=== PATIENT | male | born 1930 | race Caucasian/White ===

== ENCOUNTER 2017-04-22 14:24 | Emergency (ER) | payer OTHER, MEDICARE ==
[~2017-04-22] VITALS: Ht 180.3 cm; Wt 54.4 kg
[~2017-04-22 14:24] MED LIST: ASPIR 8181 MG PO; AUGMENTIN 875-1 EACH PO; AUGMENTIN 875875 MG PO; BYSTOLIC5 M1 PO; OMEPRAZOLE D/R20 MG PO; TRICOR 145 MG145 MG PO; VICODIN5-300 PO; VITAMIN D1000 IU PO
[2017-04-22 14:28] VITALS: BP 128/60
--- NOTE | 2017-04-22 14:50 | ED EAR COMPLAINT ---
History of Present Illness General Chief Complaint: Ear Complaints Stated Complaint: "PER PT BOTH EARS RINGING,AND CLOGGED" Source: patient, family Exam Limitations: no limitations Vital Signs & Intake/Output Vital Signs & Intake/Output Vital Signs Date Time Temp Pulse Resp B/P B/P Pulse O2 O2 Flow FiO2 Mean Ox Delivery Rate 04/22 1428 97.2 97 16 128/60 99 Room Air Allergies Coded Allergies: MDX - Codeine (CODEINE) (Severe, DIZZY/NAUSEA/VOMITING 04/23/14) Reconcile Medications Amoxicillin/Potassium Clav (Augmentin 875-125 Tablet) 1 EACH TABLET 1 TAB PO BID cellulitis Aspirin (Ecotrin) 81 MG TABLET.DR 1 TAB PO DAILY HEART (Reported) Cholecalciferol (Vitamin D3) 1,000 UNIT TABLET 1,000 IU PO DAILY Vitamins Fenofibrate (Tricor 145 MG) 145 MG TABLET 1 TAB PO DAILY CHOLESTEROL ( Reported) HYDROCODONE/ACETAMINOPHEN (Hydrocodon-Acetaminophen 5-325) 5 MG-325 MG TABLET 1 TAB PO TIDPRN PRN PAIN (Reported) Nebivolol (Bystolic) 5 MG TABLET 1 TAB PO DAILY HTN (Reported) Omeprazole 20 MG CAPSULE.DR 1 TAB PO DAILY AC GERD (Reported) Triage Note: 86 Y/O MALE C/O BILATERAL EARS FEELING "CLOGGED" X 1 MONTH. STATES HE FEELS OFF BALANCE DUE TO SYMPTOMS. FEELS THOUGH EARS ARE CLOGGED WITH WAX. DENIES PAIN. Triage Nurses Notes Reviewed? yes Onset: Gradual Injury Environment: home Severity: moderate Severity Numbers: 6 No Modifying Factors: none HPI: Patient is an 86-year-old male presenting to the emergency department with chief complaint of feeling like his ears are clogged. Symptoms have been going on for the past several weeks worse over the past couple days. Denies any associated pain. He does report intermittent dizziness with the ear clogged. No current dizziness. Denies any visual changes. No palpitations chest pain or shortness of breath. He has history of similar symptoms in the past and he needed his ears irrigated. Denies any change in hearing. (REED MOREIRA) Past History Travel History Traveled to [place] past 21 day No Medical History Any Pertinent Medical History? see below for history Neurological: DENIES EENT: DENIES Cardiovascular: hypertension, IRREGULAT HEART BEAT Respiratory: DENIES Gastrointestinal: DENIES Hepatic: DENIES Renal: DENIES Musculoskeletal: chronic back pain Psychiatric: DENIES Endocrine: DENIES Blood Disorders: DENIES Cancer(s): DENIES NEUROPSYCHIATRIST/Reproductive: DENIES Influenza Vaccine: 08/28/14 Tetanus Vaccine: 06/18/12 Surgical History Surgical History: none Psychosocial History Who do you live with Significant Other What is your primary language Indonesian Tobacco Use: Never used Family History Family History, If Any: SISTER (Cancer). MOTHER MOTHER (Heart Problem). FATHER (Heart Problem). Hx Contributory? No (REED MOREIRA) Review of Systems Review of Systems Constitutional: Reports: no symptoms. Comments Review of systems: See HPI, All other systems negative. Constitutional, no chills fever or weight loss HEENT: No visual changes no sore throat Cardiovascular: No chest pain ,palpitation , orthopnea or ankle swelling Skin, no jaundice no rashes Respiratory: No dyspnea cough sputum or hemoptysis GI: No nausea no vomiting : No dysuria No hematuria Muscle skeletal: no back pain, no neck pain, Neurologic: No numbness no confusion Psych: No stress anxiety or depression,. Heme/endocrine: No bruising no bleeding no polyuria or polydipsia Immunology: No splenectomy or history of AIDS (REED MOREIRA) Physical Exam Physical Exam General Appearance: well developed/nourished, no apparent distress, alert, awake , comfortable Ears: Bilateral: other (CERUMEN IMPACTION). Comments: Well-developed well-nourished person in no acute distress HEENT: extraocular motion intact, no nystagmus. Pupils equally round and reactive to light and accommodation. Nose is atraumatic. Cerumen impaction bilaterally. Pharynx normal. No swelling or edema. Neck: Supple, no lymphadenopathy, normal range of motion without pain or tenderness Back: Nontender Cardiovascular: Regular rate and rhythms , AUDIBLE HOLOSYSTOLIC MURMUR Respiratory: Chest nontender. No respiratory distress.breath sounds clear to auscultation bilaterally Extremity: No edema Neuro: Alert oriented x3, motor sensory normal, cranial nerves II through XII grossly intact. Skin: No appreciable rash on exposed skin, skin is warm and dry. Psych: Mood and affect is normal, memory and judgment is normal. (REED MOREIRA) Progress Differential Diagnoses I considered the following diagnoses in my evaluation of the patient: Cerumen impaction, vertigo, presbycusis, upper respiratory infection, sinusitis Plan of Care: Ears were irrigated with saline and hydrogen peroxide. Complete removal of cerumen impaction bilaterally. Tympanic membranes were visualized and intact. Patient leaving the room was steady gait. Is alert and oriented no focal deficits. Intermittent dizziness is likely related to the cerumen impaction. Initial ED EKG: none Comments: D/W DR NIKKIE CAREYSS [facility]. (REED MOREIRA) Departure Departure Time of Disposition: 1508 Disposition: HOME OR SELF CARE Condition: Stable Clinical Impression Primary Impression: Cerumen impaction Qualifiers: Laterality: bilateral Qualified Code: H61.23 - Impacted cerumen, bilateral Referrals: ELÍAS PENDLETON,HOWARD Guerrero. Additional Instructions: Follow-up with your primary care physician call to make an appointment. Increase fluids. Use [id number] Debrox just to help keep earwax softened. Return for worsening symptoms or concerns. Departure Forms: Customer Survey General Discharge Information (REED MOREIRA) PA/DIRECTOR OF ENTERPRISE STRATEGY Co-Sign Statement Statement: ED Attending supervision documentation- [] I saw and evaluated the patient. I have also reviewed all the pertinent lab results and diagnostic results. I agree with the findings and the plan of care as documented in the PA's/DIRECTOR OF [employer]TERPRISE [employer]ATEGY's documentation. [X] I have reviewed the ED Record and agree with the PA's/DIRECTOR OF [employer]TERPRISE [employer]ATEGY's documentation. [] Additions or exceptions (if any) to the PAs/DIRECTOR OF ENTERPRISE [employer]ATEGY's note and plan are summarized below: [] (NIKKIE PENDLETON,ISSAC)
== END 2017-04-22 16:09 ==
LOC: ERH 14:24
DX: H61.23 Impacted cerumen, bilateral (principal)

== ENCOUNTER 2017-05-04 14:15 | Emergency (ER) | payer OTHER, MEDICARE ==
[~2017-05-04] VITALS: Ht 177.8 cm; Wt 53.1 kg
--- NOTE | 2017-05-04 14:23 | ED EAR COMPLAINT ---
History of Present Illness General Chief Complaint: Ear Complaints Stated Complaint: "I NEED MY EARS CLEANED OUT" Source: patient Exam Limitations: no limitations Vital Signs & Intake/Output Vital Signs & Intake/Output Vital Signs Date Time Temp Pulse Resp B/P B/P Pulse O2 O2 Flow FiO2 Mean Ox Delivery Rate 05/04 1600 97.6 72 16 143/65 97 Room Air 05/04 1417 97.8 67 20 131/60 98 Room Air Allergies Coded Allergies: codeine (Severe, DIZZY 05/04/17) Reconcile Medications Atenolol 25 MG TABLET 1 TAB PO DAILY HEART (Reported) Furosemide 20 MG TABLET 1 TAB PO DAILY WATER PILL (Reported) Nebivolol HCl (Bystolic) 5 MG TABLET 1 TAB PO DAILY HTN (Reported) Triage Note: PT TO ED FOR EAR WAX REMOVAL. STATES HE WAS HERE 04/22, HAD EAR WAX REMOVED AND WAS TOLD TO COME BACK TO HAVE MORE REMOVED. DENIES PAIN, C/O RINGING IN EARS. Triage Nurses Notes Reviewed? yes Onset: Gradual Duration: constant Timing: recent history Injury Environment: home Severity: mild Severity Numbers: 3 HPI: Patient is an 86-year-old male who presents to emergency with request of earwax removal to both his ears were he's noticed in the past few days clogging sensation and decreased hearing. Patient was evaluated approximately 2 weeks ago for similar events where both his ears were cleaned with peroxide and sterile water were patient had complete resolution. Patient states that he feels the left is more clogged in the right Denies any fever chills pain headache and is otherwise without complaints (BETH PALOMO) Past History Travel History Traveled to [place] past 21 day No Medical History Any Pertinent Medical History? see below for history Neurological: DENIES EENT: DENIES Cardiovascular: hypertension, IRREGULAT HEART BEAT Respiratory: DENIES Gastrointestinal: DENIES Hepatic: DENIES Renal: DENIES Musculoskeletal: chronic back pain Psychiatric: DENIES Endocrine: DENIES Blood Disorders: DENIES Cancer(s): DENIES EMPLOYMENT LEGAL ASSISTANT/Reproductive: DENIES Tetanus Vaccine: 06/18/12 Surgical History Surgical History: none Psychosocial History Who do you live with Significant Other What is your primary language Divehi Tobacco Use: Quit >30 days ago ETOH Use: denies use Illicit Drug Use: denies illicit drug use Family History Family History, If Any: SISTER (Cancer). MOTHER MOTHER (Heart Problem). FATHER (Heart Problem). Hx Contributory? No (BETH PALOMO) Review of Systems Review of Systems Constitutional: Reports: no symptoms. EENTM: Reports: see HPI. Denies: ear pain, ear redness. Respiratory: Reports: no symptoms. Cardiovascular: Reports: no symptoms. GI: Reports: no symptoms. Genitourinary: Reports: no symptoms. Musculoskeletal: Reports: no symptoms. Skin: Reports: no symptoms. Neurological/Psychological: Reports: no symptoms. Hematologic/Endocrine: Reports: no symptoms. Immunologic/Allergic: Reports: no symptoms. All Other Systems: Reviewed and Negative (BETH PALOMO) Physical Exam Physical Exam General Appearance: no apparent distress, alert, comfortable Ears: Right: Tympanic normal. Comments: Well-developed well-nourished person in no acute distress HEENT: extraocular motion intact, no nystagmus. Pupils equally round and reactive to light and accommodation. Nose is atraumatic. Right ear-external auditory canal shows mild amount of cerumen tympanic membrane was visualized nodes be unremarkable. Left ear-noted complete cerumen impaction Pharynx normal. No swelling or edema. Neck: Supple, no lymphadenopathy, normal range of motion without pain or tenderness Back: Nontender, no CVA tenderness. Full range of motion Cardiovascular: Regular rate and rhythms no murmurs rubs or gallops, normal JVP Respiratory: Chest nontender. No respiratory distress.breath sounds clear to auscultation bilaterally Abdomen: Soft, nontender nondistended, no appreciable organomegaly. Normal bowel sounds. No ascites Extremity: No edema, no calf tenderness to palpation, normal and equal pulses. Neuro: Alert oriented x3, motor sensory normal, cranial nerves II through XII grossly intact. Skin: No appreciable rash on exposed skin, skin is warm and dry. Psych: Mood and affect is normal, memory and judgment is normal. (BETH PALOMO) Progress Differential Diagnoses I considered the following diagnoses in my evaluation of the patient: [Cerumen impaction, otitis media, otitis externa, tympanic membrane rupture, sinusitis, mastoiditis] Plan of Care: Patient on examination noted to have left-sided cerumen impaction of ear. Warm water and peroxide currently is soaking the cerumen After multiple attempts for irrigation of the left ear and using curette, THE cerumen impaction still remained in which I strongly advised patient to continue Debrox and follow up with ENT. Initial ED EKG: none (BETH PALOMO) Departure Departure Disposition: HOME OR SELF CARE Condition: Stable Clinical Impression Primary Impression: Excessive cerumen in left ear canal Referrals: NENA PENDLETON,ANIVAL CA MD,CELE BRUMFIELD (PCP/Family) Additional Instructions: As discussed continue [id number] Debrox as directed. If symptoms worsen return to emergency room. Tomorrow follow up and establish ENT Dr. Duran for further evaluation treatment of your symptoms Departure Forms: Customer Survey General Discharge Information (BETH PALOMO) PA/SOCIAL WORK NURSE Co-Sign Statement Statement: ED Attending supervision documentation- [x] I saw and evaluated the patient. I have also reviewed all the pertinent lab results and diagnostic results. I agree with the findings and the plan of care as documented in the PA's/SOCIAL WORK NURSE's documentation. [] I have reviewed the ED Record and agree with the PA's/SOCIAL WORK NURSE's documentation. [] Additions or exceptions (if any) to the PAs/SOCIAL WORK NURSE's note and plan are summarized below: [] (SHAKA PLATA DO)
[2017-05-04] MEDS ORDERED: FUROSEMIDE20 M1 PO (14:48)
[2017-05-04] MEDS ORDERED: ATENOLOL25 M1 PO (14:49)
[2017-05-04 16:00] VITALS: BP 143/65
== END 2017-05-04 16:13 ==
LOC: ERH 14:15
DX: H61.22 Impacted cerumen, left ear (principal)